=== PATIENT | male | born 1940 | race Native Hawaiian/Other Pacific Islander ===

== ENCOUNTER 2016-10-05 15:49 | Observation (INO) | payer MEDICARE ==
[2016-10-05 15:55] VITALS: BMI 30.7
[2016-10-05] MEDS ORDERED: Sodium Chloride 0.9% 1,000 ML IV ONE (16:14)
--- NOTE | 2016-10-05 16:20 | ED PDOC ---
Arrival/HPI - General Chief Complaint: Dizziness/Lightheaded Time Seen by Provider: 10/05/16 16:12 Historian: Patient - History of Present Illness Narrative History of Present Illness (Text): 10/05/16 16:15 75yo male with PMhx of hypertension, hypercholestrol, CAD, Diabetes referred to ED by Dr. Mattson for 2days history of dizziness. Patient notes that he have been dizzy for the past two days. States is usually when he stands up. Describes the dizziness as "lightheadedness". States he noticed low BP whenever he stands and gets this episodes. Notes that he did not take his antihypertensive for the past 2days, since he noticed the low BP. He denies chest pain, SOB, headache, visual changes, focal neurological weakness, aphasia, nausea, vomiting, abdominal pain, any other complaint. Past Medical History - Provider Review Nursing Documentation Reviewed: Yes - Cardiac Hx Cardiac Arrhythmia: Yes (afib) Hx Pacemaker: No - Pulmonary Hx Respiratory Disorders: No - Neurological Hx Paralysis: No - HEENT Hx HEENT Disorder: No - Renal Other/Comment: disorder kidney and ureter - Hematological/Oncological Hx Blood Transfusions: No Hx Blood Transfusion Reaction: No - Musculoskeletal/Rheumatological Hx Musculoskeletal Disorders: Yes (GOUT) - Gastrointestinal Hx Constipation: Yes - Genitourinary/Gynecological Hx Prostate Problems: Yes (ENLARGED PROSTATE) - Psychiatric Hx Emotional Abuse: No Hx Physical Abuse: No Hx Substance Use: No - Anesthesia Hx Anesthesia Reactions: No Hx Malignant Hyperthermia: No - Suicidal Assessment Feels Threatened In Home Enviroment: No Family/Social History - Physician Review Nursing Documentation Reviewed: Yes Family/Social History: Unknown Family HX Smoking Status: Former Smoker Hx Alcohol Use: No Hx Substance Use: No Allergies/Home Meds Allergies/Adverse Reactions: Allergies No Known Allergies Allergy (Verified 10/05/16 15:55) Home Medications: Home Meds Medication Instructions Recorded Confirmed Aspirin [Aspir 81] 81 mg PO DAILY 11/09/11 10/05/16 Allopurinol [Zyloprim] 100 mg PO DAILY 06/23/15 10/05/16 Clopidogrel [Plavix] 75 mg PO DAILY 06/23/15 10/05/16 HCTZ/Losartan Potassium [Hyzaar 1 tab PO DAILY 06/23/15 10/05/16 12.5 mg-50 mg] Tamsulosin [Flomax] 0.4 mg PO DAILY 06/23/15 10/05/16 Atorvastatin [Lipitor] 10 mg PO DAILY 10/05/16 10/05/16 Cholecalciferol (Vitamin D3) 1 tab PO DAILY 10/05/16 10/05/16 [Vitamin D3] Metformin HCl [Glucophage] 1,000 mg PO BID 10/05/16 10/05/16 Sotalol HCl [Sotalol] 80 mg PO BID 10/05/16 10/05/16 Review of Systems - Physician Review All systems were reviewed & negative as marked: Yes - Review of Systems Constitutional: Normal Eyes: Normal ENT: Normal Respiratory: Normal Cardiovascular: Normal Gastrointestinal: Normal Genitourinary Male: Normal Musculoskeletal: Normal Skin: Normal Neurological: Dizziness. absent: Headache, Focal Weakness, Speech Changes, Facial Droop Endocrine: Normal Hemo/Lymphatic: Normal Psychiatric: Normal Physical Exam Vital Signs Reviewed: Yes Vital Signs Temp Pulse Resp BP Pulse Ox 10/05/16 21:26 62 16 144/85 10/05/16 17:50 79 16 137/83 100 10/05/16 15:56 98.4 F 71 16 128/76 99 Temperature: Afebrile Blood Pressure: Normal Pulse: Regular Respiratory Rate: Normal Appearance: Positive for: Well-Appearing, Non-Toxic, Comfortable Pain Distress: None Mental Status: Positive for: Alert and Oriented X 3 - Systems Exam Head: Present: Atraumatic, Normocephalic Pupils: Present: PERRL Extroacular Muscles: Present: EOMI Conjunctiva: Present: Normal Mouth: Present: Moist Mucous Membranes Neck: Present: Normal Range of Motion Respiratory/Chest: Present: Clear to Auscultation, Good Air Exchange. No: Respiratory Distress, Accessory Muscle Use Cardiovascular: Present: Regular Rate and Rhythm, Normal S1, S2. No: Murmurs Abdomen: Present: Normal Bowel Sounds. No: Tenderness, Distention, Peritoneal Signs Back: Present: Normal Inspection Upper Extremity: Present: Normal Inspection. No: Cyanosis, Edema Lower Extremity: Present: Normal Inspection. No: Edema Neurological: Present: GCS=15, CN II-XII Intact, Speech Normal, Motor Func Grossly Intact, Normal Sensory Function, Normal Cerebellar Funct, Norm Deep Tendon Reflexes, Gait Normal, Memory Normal, Normal 2Pt Descrimination, Other ( No focal neurological deficit) Skin: Present: Warm, Dry, Normal Color. No: Rashes Psychiatric: Present: Alert, Oriented x 3, Normal Insight, Normal Concentration Medical Decision Making ED Course and Treatment: 10/06/16 02:10 PT with multiple co morbidities presented for stated history. He was hemodynamically stable in ED. Lab was unremarkable. Head CT IMPRESSION: Mild atrophy. Mucosal polyp/cyst within the left sphenoid sinus. Opacification/fluid involving the right greater the left mastoid air cells; correlate clinically for mastoiditis. Incidental finding in head CT as noted above. Pt is asymptomatic. he have no ear pain. Pt will need observation for possible carotid US and head MRI. Case was CECELIA Mattson who referred pt to ED he requested that pt be admitted to the hospitalist. Case was CECELIA Alfaro and he accepted pt. Result and plan was DW both and the and they agreed - Lab Interpretations Lab Results: 10/05/16 16:25 10/05/16 16:25 Lab Results 10/05/16 16:51: ESR 11 10/05/16 16:25: Free T4 0.89, TSH 3rd Generation 1.07 10/05/16 16:25: Sodium 132, Potassium 4.4, Chloride 96 L, Carbon Dioxide 28, Anion Gap 12, BUN 12, Creatinine 0.9, Est GFR ( Amer) > 60, Est GFR (Non- Af Amer) > 60, Random Glucose 137 H, Calcium 9.3, Total Bilirubin 0.6, AST 29, ALT 41, Alkaline Phosphatase 46, Lactate Dehydrogenase 275 L, Total Creatine Kinase 84, Troponin I < 0.01, Total Protein 7.0, Albumin 4.0, Globulin 3.0, Albumin/Globulin Ratio 1.3 10/05/16 16:25: PT 11.1, INR 1.03, APTT 25.6 10/05/16 16:25: WBC 7.0, RBC 3.84, Hgb 12.9 L, Hct 37.6 L, MCV 97.9, MCH 33.6, MCHC 34.3, RDW 13.0, Plt Count 164, MPV 9.8, Gran % 62.2, Lymph % (Auto) 27.5, [place] % (Auto) 8.7 H, Eos % (Auto) 1.0 L, Baso % (Auto) 0.6, Gran # 4.36, Lymph # 1.9, [place] # 0.6, Eos # 0.1, Baso # 0.04 - RAD Interpretation Radiology Orders: 10/05/16 16:13 HEAD W/O CONTRAST [CT] Stat - Medication Orders Current Medication Orders: Acetaminophen (Tylenol 325mg Tab) 650 mg PO Q6H PRN PRN Reason: Fever >100.4 F Allopurinol (Zyloprim) 100 mg PO DAILY [facility] Aspirin (Ecotrin) 81 mg PO DAILY [facility] Atorvastatin Calcium (Lipitor) 10 mg PO DAILY [facility] Clopidogrel Bisulfate (Plavix) 75 mg PO DAILY [facility] Famotidine (Pepcid) 20 mg PO BID [facility] Hydralazine HCl (Apresoline) 10 mg IVP Q6H PRN PRN Reason: high blood pressure Hydrochlorothiazide (Microzide) 12.5 mg PO DAILY [facility] Sodium Chloride (Sodium Chloride 0.9%) 100 mls @ 100 mls/hr IV .Q1H [facility] Last Admin: 10/05/16 21:46 Dose: 100 mls/hr Ibuprofen (Motrin Tab) 600 mg PO Q6H PRN PRN Reason: Pain, Mild (1-3) Losartan Potassium (Cozaar) 50 mg PO DAILY [facility] Non-Formulary Medication (Cholecalciferol (Vitamin D3) [Vitamin D3]) 1 tab PO DAILY [facility] Sotalol HCl (Betapace) 80 mg PO BID [facility] Tamsulosin HCl (Flomax) 0.4 mg PO DAILY [facility] Discontinued Medications Sodium Chloride (Sodium Chloride 0.9%) 1,000 mls @ 250 mls/hr IV .Q4H ONE Stop: 10/05/16 20:13 Last Admin: 10/05/16 16:28 Dose: 250 mls/hr Disposition/Present on Arrival - Present on Arrival Any Indicators Present on Arrival: No History of DVT/PE: No History of Uncontrolled Diabetes: No Urinary Catheter: No History of Decub. Ulcer: No History Surgical Site Infection Following: None - Disposition Have Diagnosis and Disposition been Completed?: Yes Diagnosis: Near syncope Disposition: HOSPITALIZED Disposition Time: 19:15 Condition: FAIR
[2016-10-05 16:29] LABS: ADD MANUAL DIFF? NO
[2016-10-05 16:32] LABS: BASO # 0.04 K/mm3 (0.0-2.0); BASO % 0.6 % (0.0-3.0); EOS # 0.1 (0.0-0.7); GRAN # 4.36 (1.4-6.5); GRAN % 62.2 % (50.0-68.0); HEMATOCRIT 37.6 % (42.0-52.0); LYMPH # 1.9 (1.2-3.4); LYMPH % 27.5 % (22.0-35.0); MEAN CELL VOLUME 97.9 fL (80.0-105.0); MEAN CORPUSCULAR HEMOGLOBIN 33.6 pg (25.0-35.0); MEAN CORPUSCULAR HGB CONC 34.3 g/dl (31.0-37.0); MEAN PLATELET VOLUME 9.8 fl (7.0-11.0); MONO # 0.6 (0.1-0.6); MONO % 8.7 % (1.0-6.0); PLATELET COUNT 164 10^3/uL (120.0-450.0)
[2016-10-05 16:41] LABS: ALB/GLOB RATIO 1.3 (1.1-1.8); ALKALINE PHOSPHATASE 46 U/L (38-133); ALT/SGPT 41 U/L (7-56); AST/SGOT 29 U/L (15-59); BILIRUBIN,TOTAL 0.6 mg/dL (0.2-1.3); BLOOD UREA NITROGEN 12 mg/dL (7-21); CALCIUM 9.3 mg/dL (8.4-10.5); CARBON DIOXIDE 28 mmol/L (21-33); CHLORIDE 96 mmol/L (98-107); GFR AFRICAN-AMERICAN > 60; GLUCOSE,RANDOM 137 mg/dL (70-110); POTASSIUM 4.4 mmol/L (3.6-5.0); SODIUM 132 mmol/L (132-148)
[2016-10-05 16:44] LABS: INR 1.03 (0.93-1.08); PARTIAL THROMBOPLASTIN TIME 25.6 Seconds (23.7-30.8)
[2016-10-05 16:56] LABS: TROPONIN I < 0.01 ng/mL
--- NOTE | 2016-10-05 18:27 | CT ---
PROCEDURE: CT HEAD WITHOUT CONTRAST. HISTORY: dizziness COMPARISON: None available. TECHNIQUE: Axial computed tomography images were obtained through the head/brain without intravenous contrast. Radiation dose: Total exam DLP = 918.55 mGy-cm. This CT exam was performed using one or more of the following dose reduction techniques: Automated exposure control, adjustment of the mA and/or kV according to patient size, and/or use of iterative reconstruction technique. FINDINGS: HEMORRHAGE: No intracranial hemorrhage. BRAIN: Diffuse atrophy with prominence of the ventricles and sulci noted. No mass effect or edema. Dense intracranial atherosclerosis. Bilateral basal ganglia calcifications. The valle-white matter differentiation appears intact. Please note that MRI with diffusion imaging is more sensitive in the detection of acute ischemic event. VENTRICLES: No hydrocephalus. CALVARIUM: Unremarkable. PARANASAL SINUSES: 16 mm mucosal polyp or cyst within the left sphenoid sinus. MASTOID AIR CELLS: Opacification/fluid involving the right greater than left mastoid air cells. OTHER FINDINGS: None. IMPRESSION: Mild atrophy. Mucosal polyp/cyst within the left sphenoid sinus. Opacification/fluid involving the right greater the left mastoid air cells; correlate clinically for mastoiditis.
--- NOTE | 2016-10-05 20:13 | CP.PCM.HP ---
<DannyDick - Last Filed: 10/05/16 20:08> History of Present Illness - History of Present Illness History of Present Illness: This patient is a 75yo M w/ a PMHx of CAD w 8 stents, HTN, HLD, DM, BPH, gout who is presenting to the hospital for low blood pressure readings and feelings of dizziness. He states that he has not taken his blood pressure meds in 2 days because his BP has been consistently low, worse when he goes from laying down to standing. He denies fevers/chills, RIOS, CP, SOB, abdominal pain, N/V/D, dysuria/freq/urg, or lower extremity pain/swelling. Patient states he just gets light headed when she stands up, no room spinning or double vision. PMhx: CAD, HTN, HLD, DM, BPH, gout Surgeries hernia surgery Allergies: NKDA Meds: Sotalol, Aspirin 81, Allopurinol, Vit D3, Clopidogrel, Hctz/losartan, Metformin, Tamsulosin Social: Lives at home with , retired, past-smoker stopped 30 years ago, social drinker 1-2 glasses on weekends, no illict drugs FamHx: brother with open heart surgery Present on Admission - Present on Admission Any Indicators Present on Admission: No History of DVT/PE: No History of Uncontrolled Diabetes: No Urinary Catheter: No Decubitus Ulcer Present: No Past Patient History - Past Social History Smoking Status: Former Smoker - CARDIAC Hx Cardia Arrhythmia: Yes (afib) Hx Pacemaker: No - PULMONARY Hx Respiratory Disorders: No - NEUROLOGICAL Hx Paralysis: No - HEENT Hx HEENT Problems: No - RENAL Other/Comment: disorder kidney and ureter - HEMATOLOGICAL/ONCOLOGICAL Hx Blood Transfusions: No Hx Blood Transfusion Reaction: No - MUSCULOSKELETAL/RHEUMATOLOGICAL Hx Musculoskeletal Disorders: Yes (GOUT) - GASTROINTESTINAL Hx Constipation: Yes - GENITOURINARY/GYNECOLOGICAL Hx Prostate Problems: Yes (ENLARGED PROSTATE) - PSYCHIATRIC Hx Emotional Abuse: No Hx Physical Abuse: No Hx Substance Use: No - SURGICAL HISTORY Hx Surgeries: Yes (PTCA WITH STENTS X6 TOTAL) - ANESTHESIA Hx Anesthesia Reactions: No Hx Malignant Hyperthermia: No Meds Allergies/Adverse Reactions: Allergies Allergy/AdvReac Type Severity Reaction Status Date / Time No Known Allergies Allergy Verified 10/05/16 15:55 Physical Exam - Constitutional Appears: Well, Non-toxic - Head Exam Head Exam: ATRAUMATIC, NORMAL INSPECTION - Eye Exam Eye Exam: EOMI, Normal appearance - ENT Exam ENT Exam: Mucous Membranes Moist - Neck Exam Neck exam: Positive for: Full Rom. Negative for: Lymphadenopathy - Respiratory Exam Respiratory Exam: Clear to Auscultation Bilateral, NORMAL BREATHING PATTERN. absent: Rales, Rhonchi, Wheezes - Cardiovascular Exam Cardiovascular Exam: REGULAR RHYTHM - GI/Abdominal Exam GI & Abdominal Exam: Normal Bowel Sounds, Soft. absent: Tenderness - Extremities Exam Extremities exam: Positive for: calf tenderness, normal inspection. Negative for: full ROM - Back Exam Back exam: NORMAL INSPECTION. absent: CVA tenderness (L), CVA tenderness (R) - Neurological Exam Neurological exam: Alert, CN II-XII Intact, Oriented x3 - Psychiatric Exam Psychiatric exam: Normal Affect - Skin Skin Exam: Warm Results - Vital Signs Recent Vital Signs: Last Vital Signs Temp 98.4 F 10/05/16 15:56 Pulse 79 10/05/16 17:50 Resp 16 10/05/16 17:50 BP 137/83 10/05/16 17:50 Pulse Ox 100 10/05/16 17:50 - Labs Result Diagrams: 10/05/16 16:25 10/05/16 16:25 Labs: Laboratory Results - last 24 hr 10/05/16 10/05/16 10/05/16 16:25 16:25 16:25 WBC 7.0 RBC 3.84 Hgb 12.9 L Hct 37.6 L MCV 97.9 MCH 33.6 MCHC 34.3 RDW 13.0 Plt Count 164 MPV 9.8 Gran % 62.2 Lymph % (Auto) 27.5 [place] % (Auto) 8.7 H Eos % (Auto) 1.0 L Baso % (Auto) 0.6 Gran # 4.36 Lymph # 1.9 [place] # 0.6 Eos # 0.1 Baso # 0.04 PT 11.1 INR 1.03 APTT 25.6 Sodium 132 Potassium 4.4 Chloride 96 L Carbon Dioxide 28 Anion Gap 12 BUN 12 Creatinine 0.9 Est GFR ( Amer) > 60 Est GFR (Non-Af Amer) > 60 Random Glucose 137 H Calcium 9.3 Total Bilirubin 0.6 AST 29 ALT 41 Alkaline Phosphatase 46 Lactate Dehydrogenase 275 L Total Creatine Kinase 84 Troponin I < 0.01 Total Protein 7.0 Albumin 4.0 Globulin 3.0 Albumin/Globulin Ratio 1.3 Assessment & Plan - Assessment and Plan (Free Text) Assessment: 75yo M admitted for near syncope Near Syncope -echo and carotid dopplers ordered -hold all BP meds for now -fluid rescucitation with 100ml/hr NS -f/u tsh and free T4 -trend troponin, initial negative -telemetry -urine negative -orthostatic blood pressure check; patient orthostatic at home; most likely dehydration Chronic CHF not in acute exacerbation (systolic and diastolic dysfunction) -EF decreased on myocardial nuclear stress test, however 54% on regular stress with wall motion abnormalities HTN -hold BP meds for now -PRN hydralazine if becomes Hypertensive HLD -c/w home meds DM -RISS low BPH -hold tamsulosin for now because can lower BP Gout -not in acute exacerbation -continue with home meds; allopurinol Proph -pepcid -SCD -Heart Healthy Diet Case discussed and seen with Dr. Dominic Delgado PGY1 Night Float Decision To Admit - Pt Status Changed To: Hospital Disposition Of: Observation - . Bed Request Type: Remote Telemetry Admitting Physician: Travis Alfaro <Travis Alfaro - Last Filed: 10/06/16 02:35> Results - Vital Signs Recent Vital Signs: Last Vital Signs Temp 97.8 F 10/05/16 22:25 Pulse 61 10/05/16 22:25 Resp 18 10/05/16 22:25 BP 144/74 10/05/16 22:25 Pulse Ox 100 10/05/16 17:50 - Labs Result Diagrams: 10/05/16 16:25 10/05/16 16:25 Labs: Laboratory Results - last 24 hr 10/05/16 22:19 Troponin I < 0.01 Attending/Attestation - Attestation I have personally seen and examined this patient.: Yes I have fully participated in the care of the patient.: Yes I have reviewed all pertinent clinical information: Yes
[2016-10-05 20:47] LABS: FREE T4 0.89 ng/dL (0.78-2.19)
[2016-10-05 21:02] LABS: THYROID STIMULATING HORMONE 1.07 mIU/mL (0.46-4.68)
[2016-10-05] MEDS: Sodium Chloride 0.9% 100 ML IV SCH (21:46)
[2016-10-06 00:24] VITALS: RESP 18
[2016-10-06] MEDS: Sodium Chloride 0.9% 100 ML IV SCH (06:57)
[2016-10-06 07:34] LABS: ADD MANUAL DIFF? NO
[2016-10-06 07:42] LABS: BASO # 0.04 K/mm3 (0.0-2.0); BASO % 0.6 % (0.0-3.0); EOS # 0.1 (0.0-0.7); EOS % 1.4 % (1.5-5.0); GRAN # 4.19 (1.4-6.5); GRAN % 65.7 % (50.0-68.0); HEMATOCRIT 36.4 % (42.0-52.0); LYMPH # 1.5 (1.2-3.4); LYMPH % 23.7 % (22.0-35.0); MEAN CELL VOLUME 97.8 fL (80.0-105.0); MEAN CORPUSCULAR HEMOGLOBIN 33.1 pg (25.0-35.0); MEAN CORPUSCULAR HGB CONC 33.8 g/dl (31.0-37.0); MEAN PLATELET VOLUME 9.9 fl (7.0-11.0); MONO # 0.6 (0.1-0.6); MONO % 8.6 % (1.0-6.0); PLATELET COUNT 155 10^3/uL (120.0-450.0); WHITE BLOOD COUNT 6.4 10^3/ul (4.5-11.0)
[2016-10-06 08:57] LABS: ALB/GLOB RATIO 1.4 (1.1-1.8); ALKALINE PHOSPHATASE 51 U/L (38-133); ALT/SGPT 43 U/L (7-56); AST/SGOT 28 U/L (15-59); BILIRUBIN,TOTAL 0.6 mg/dL (0.2-1.3); BLOOD UREA NITROGEN 10 mg/dL (7-21); CALCIUM 9.3 mg/dL (8.4-10.5); CARBON DIOXIDE 26 mmol/L (21-33); CHLORIDE 101 mmol/L (95-110); GFR AFRICAN-AMERICAN > 60; GLUCOSE,RANDOM 136 mg/dL (70-110); POTASSIUM 4.4 mmol/L (3.6-5.0); SODIUM 137 mmol/L (132-148); TOTAL PROTEIN 6.3 g/dL (5.8-8.3)
[2016-10-06 09:33] VITALS: BP 155/91; TEMP 98.2; O2SAT 97
[2016-10-06] MEDS ORDERED: Non Formulary Medication (Cholecalciferol (Vitamin D3) [Vitamin D3] 1 TAB) PO SCH (10:00)
[2016-10-06] MEDS ORDERED: Non Formulary Medication (Hctz/Losartan Potassium [Hyzaar 12.5 Mg-50 Mg] 1 TAB) PO SCH (10:00)
--- NOTE | 2016-10-06 10:17 | CARD ---
APPROVED REPORT EKG Measurement Heart [id number] <Conclusion> Normal sinus rhythm Inferior infarct, old NSSTW changes No change
--- NOTE | 2016-10-06 13:40 | CP.PCM.PN ---
<Jean Funk - Last Filed: 10/06/16 13:36> Subjective - Date & Time of Evaluation Date of Evaluation: 10/06/16 Time of Evaluation: 13:36 - Subjective Subjective: Patient seen at bedside. He denies dizziness, chest pain, shortness of breath at this time. He and his states that he has been compliant with all home medications. states that the patient experienced symptoms when standing from a sitting position. States SBP at time of event was 70's. No prior hx seizure, CVA, arrhythmia. Objective - Vital Signs/Intake and Output Vital Signs (last 24 hours): Temp Pulse Resp BP Pulse Ox 98.2 F 61 18 155/91 H 97 10/06/16 06:00 10/06/16 10:12 10/06/16 06:00 10/06/16 10:12 10/06/16 06:00 Intake and Output: 10/06/16 10/06/16 06:59 18:59 Intake Total 120 Output Total 400 Balance -280 - Medications Medications: Current Medications Acetaminophen (Tylenol 325mg Tab) 650 mg PO Q6H PRN PRN Reason: Fever >100.4 F Allopurinol (Zyloprim) 100 mg PO DAILY [facility] Last Admin: 10/06/16 10:11 Dose: 100 mg Aspirin (Ecotrin) 81 mg PO DAILY [facility] Last Admin: 10/06/16 10:11 Dose: 81 mg Atorvastatin Calcium (Lipitor) 10 mg PO DAILY [facility] Last Admin: 10/06/16 10:11 Dose: 10 mg Clopidogrel Bisulfate (Plavix) 75 mg PO DAILY [facility] Last Admin: 10/06/16 10:11 Dose: 75 mg Famotidine (Pepcid) 20 mg PO BID [facility] Last Admin: 10/06/16 10:12 Dose: 20 mg Hydralazine HCl (Apresoline) 10 mg IVP Q6H PRN PRN Reason: high blood pressure Hydrochlorothiazide (Microzide) 12.5 mg PO DAILY [facility] Last Admin: 10/06/16 10:11 Dose: 12.5 mg Sodium Chloride (Sodium Chloride 0.9%) 100 mls @ 100 mls/hr IV .Q1H [facility] Last Admin: 10/06/16 06:57 Dose: 100 mls/hr Ibuprofen (Motrin Tab) 600 mg PO Q6H PRN PRN Reason: Pain, Mild (1-3) Losartan Potassium (Cozaar) 50 mg PO DAILY [facility] Last Admin: 10/06/16 10:12 Dose: 50 mg Non-Formulary Medication (Cholecalciferol (Vitamin D3) [Vitamin D3]) 1 tab PO DAILY [facility] Last Admin: 10/06/16 10:12 Dose: Not Given Sotalol HCl (Betapace) 80 mg PO BID [facility] Last Admin: 10/06/16 10:12 Dose: Not Given Tamsulosin HCl (Flomax) 0.4 mg PO DAILY [facility] Last Admin: 10/06/16 10:12 Dose: Not Given - Labs Labs: 10/06/16 07:32 10/06/16 07:30 PT 11.1 Seconds (9.9-11.8) 10/05/16 16:25 INR 1.03 (0.93-1.08) 10/05/16 16:25 APTT 25.6 Seconds (23.7-30.8) 10/05/16 16:25 - Head Exam Head Exam: ATRAUMATIC, NORMOCEPHALIC - Eye Exam Eye Exam: EOMI, PERRL - ENT Exam ENT Exam: Mucous Membranes Moist - Neck Exam Neck Exam: Full ROM, Normal Inspection - Respiratory Exam Respiratory Exam: Clear to Ausculation Bilateral. absent: Rales, Rhonchi, Wheezes - Cardiovascular Exam Cardiovascular Exam: REGULAR RHYTHM, +S1, +S2 - GI/Abdominal Exam GI & Abdominal Exam: Soft, Normal Bowel Sounds. absent: Tenderness - Extremities Exam Extremities Exam: absent: Calf Tenderness, Pedal Edema - Neurological Exam Neurological Exam: Alert, Awake, Oriented x3 - Psychiatric Exam Psychiatric exam: Normal Affect, Normal Mood - Skin Skin Exam: Normal Color, Warm Assessment and Plan - Assessment and Plan (Free Text) Assessment: 75yo M admitted for near syncope likely 2/2 orthostatic hypotension. Near Syncope -echo and carotid dopplers results pending -hold all BP meds for now -continue fluid rescucitation with 100ml/hr NS -f/u tsh and free T4 -trop negative -telemetry -urine negative Chronic CHF not in acute exacerbation (systolic and diastolic dysfunction) -EF decreased on myocardial nuclear stress test, however 54% on regular stress with wall motion abnormalities HTN -hold BP meds for now -PRN hydralazine if becomes Hypertensive HLD -c/w home meds DM -RISS low BPH -hold tamsulosin for now because can lower BP Gout -not in acute exacerbation -continue with home meds; allopurinol Proph -pepcid -SCD -Heart Healthy Diet <Viv Escobar B - Last Filed: 10/06/16 17:06> Objective - Vital Signs/Intake and Output Vital Signs (last 24 hours): Temp Pulse Resp BP Pulse Ox 98.2 F 82 18 155/91 H 97 10/06/16 06:00 10/06/16 14:00 10/06/16 06:00 10/06/16 10:12 10/06/16 06:00 Intake and Output: 10/06/16 10/06/16 06:59 18:59 Intake Total 120 Output Total 400 Balance -280 - Medications Medications: Current Medications Acetaminophen (Tylenol 325mg Tab) 650 mg PO Q6H PRN PRN Reason: Fever >100.4 F Allopurinol (Zyloprim) 100 mg PO DAILY [facility] Last Admin: 10/06/16 10:11 Dose: 100 mg Aspirin (Ecotrin) 81 mg PO DAILY [facility] Last Admin: 10/06/16 10:11 Dose: 81 mg Atorvastatin Calcium (Lipitor) 10 mg PO DAILY [facility] Last Admin: 10/06/16 10:11 Dose: 10 mg Clopidogrel Bisulfate (Plavix) 75 mg PO DAILY [facility] Last Admin: 10/06/16 10:11 Dose: 75 mg Famotidine (Pepcid) 20 mg PO BID [facility] Last Admin: 10/06/16 10:12 Dose: 20 mg Hydralazine HCl (Apresoline) 10 mg IVP Q6H PRN PRN Reason: high blood pressure Hydrochlorothiazide (Microzide) 12.5 mg PO DAILY [facility] Last Admin: 10/06/16 10:11 Dose: 12.5 mg Sodium Chloride (Sodium Chloride 0.9%) 100 mls @ 100 mls/hr IV .Q1H [facility] Last Admin: 10/06/16 06:57 Dose: 100 mls/hr Ibuprofen (Motrin Tab) 600 mg PO Q6H PRN PRN Reason: Pain, Mild (1-3) Losartan Potassium (Cozaar) 50 mg PO DAILY [facility] Last Admin: 10/06/16 10:12 Dose: 50 mg Non-Formulary Medication (Cholecalciferol (Vitamin D3) [Vitamin D3]) 1 tab PO DAILY [facility] Last Admin: 10/06/16 10:12 Dose: Not Given Sotalol HCl (Betapace) 80 mg PO BID [facility] Last Admin: 10/06/16 10:12 Dose: Not Given Tamsulosin HCl (Flomax) 0.4 mg PO DAILY [facility] Last Admin: 10/06/16 10:12 Dose: Not Given - Labs Labs: 10/06/16 07:32 10/06/16 07:30 PT 11.1 Seconds (9.9-11.8) 10/05/16 16:25 INR 1.03 (0.93-1.08) 10/05/16 16:25 APTT 25.6 Seconds (23.7-30.8) 10/05/16 16:25 Attending/Attestation - Attestation I have personally seen and examined this patient.: Yes I have fully participated in the care of the patient.: Yes I have reviewed all pertinent clinical information, including history, physical exam and plan: Yes Notes (Text): I have seen and examined the patient at bedside. This is 75 year old male with history of CAD s/p 8 stents, HTN, dyslipidemia, DM-2, BPH, gout, former smoker, paroxysmal atrial fibrillation (not on anticoagulation) who was admitted last night for near syncope most likely due to orthostatic hypotension however other causes cannot be ruled out. His BP was noted to be low therefore all BP meds were held. He remains on IVF. He denies any complaints at this time. Echo and carotid doppler is done however result is still pending. Awaiting cardiology consult. Upon discharge patient will follow up with Dr Mattson. Dr Viv Escobar
[2016-10-06 14:23] VITALS: PULSE 82
--- NOTE | 2016-10-06 15:43 | US ---
PROCEDURE: Bilateral carotid artery duplex ultrasound HISTORY: Carotid stenosis syncope PHYSICIAN(S): Guille Bush MD. TECHNIQUE: Duplex sonography and color-flow Doppler were used to evaluate the carotid bifurcations and limited segments of the vertebral arteries bilaterally. FINDINGS: There is mild diffuse heterogeneous plaque noted at the carotid bifurcations bilaterally. The peak systolic velocity in the proximal right internal carotid artery is 81 cm/sec. This corresponds to a 20 to 39% proximal right ICA stenosis. Normal systolic velocities are noted in the proximal right external carotid artery. There is antegrade flow in the small right vertebral artery. The peak systolic velocity in the proximal left internal carotid artery is 80 cm/sec. This corresponds to a 20 to 39% proximal left ICA stenosis. Normal systolic velocities are noted in the proximal left external carotid artery. There is antegrade flow in the dominant left vertebral artery. IMPRESSION: 1. Bilateral 20-39% proximal ICA stenoses. 2. Antegrade flow in both vertebral arteries.
--- NOTE | 2016-10-07 09:51 | CARD ---
APPROVED REPORT EXAM: Two-dimensional and M-mode echocardiogram with Doppler and color Doppler. Other Information Quality : FairRhythm : INDICATION Syncope 2D DIMENSIONS IVSd1.1 (0.7-1.1cm)LVDd5.2 (3.9-5.9cm) PWd1.1 (0.7-1.1cm)LVDs3.8 (2.5-4.0cm) FS (%) 23.8 %LVEF (%)50.0 (>50%) M-Mode DIMENSIONS Left Atrium (MM)4.30 (2.5-4.0cm)Aortic Root4.10 (2.2-3.7cm) Aortic Cusp Exc.2.40 (1.5-2.0cm) Aortic Valve AoV Peak Gwkfnwzt873.0cm/s Mitral Valve MV E Njokgzyn17.5cm/sMV A Mpidwqin45.8cm/sE/A ratio1.3 TDI Lateral E' Peak V8.76cm/sMedial E' Peak V5.94cm/sE/Lateral E'8.4 E/Medial E'12.4 Tricuspid Valve TR Peak Kthrfqcd687ef/sRAP [id number] Peak Gr.30mmHg [id number] LEFT VENTRICLE The left ventricle is normal size. There is normal left ventricular wall thickness. The left ventricular function is normal. The left ventricular ejection fraction is within the normal range. There is normal LV segmental wall motion. RIGHT VENTRICLE The right ventricle is normal size. ATRIA The left atrium is mildly dilated. The right atrium size is normal. The interatrial septum is intact with no evidence for an atrial septal defect. AORTIC VALVE The aortic valve is normal in structure. There is trace aortic regurgitation. MITRAL VALVE The mitral valve is normal in structure. Mitral regurgitation is trace. TRICUSPID VALVE The tricuspid valve is normal in structure. PULMONIC VALVE The pulmonic valve is not well visualized. There is mild pulmonic valvular regurgitation. GREAT VESSELS The aortic root is normal in size. PERICARDIAL EFFUSION There is no pericardial effusion. <Conclusion> The left ventricle is normal size. There is normal left ventricular wall thickness. The left ventricular function is normal. The left ventricular ejection fraction is within the normal range.
== END 2016-10-06 18:14 | disposition home or self-care (01) ==
LOC: ED 15:49 → ERH 19:14 → 3RSO 21:17
PROVIDERS: ADMIT Hospitalist; ATTEND Hospitalist
DX: I95.1 Orthostatic hypotension (principal); R55 Syncope and collapse; I11.0 Hypertensive heart disease with heart failure; I50.42 Chronic combined systolic (congestive) and diastolic (congestive) heart failure; N40.0 Benign prostatic hyperplasia without lower urinary tract symptoms; M10.9 Gout, unspecified; I48.0 Paroxysmal atrial fibrillation; I25.10 Atherosclerotic heart disease of native coronary artery without angina pectoris; E78.5 Hyperlipidemia, unspecified; E11.9 Type 2 diabetes mellitus without complications; Z79.84 Long term (current) use of oral hypoglycemic drugs; Z79.82 Long term (current) use of aspirin; Z87.891 Personal history of nicotine dependence
CPT/HCPCS: 36415; 70450; 80053; 82550; 82948; 83615; 84439; 84443; 84484; 85025; 85610; 85651; 85730; 87040; 93005; 93306; 93880; 99285; G0378; J7040

== ENCOUNTER 2016-10-09 14:42 | Observation (INO) | payer MEDICARE ==
[2016-10-09 14:42] VITALS: BMI 30.7
--- NOTE | 2016-10-09 15:16 | ED PDOC ---
Arrival/HPI - General Chief Complaint: Syncope Time Seen by Provider: 10/09/16 14:47 Historian: Patient, Family - History of Present Illness Narrative History of Present Illness (Text): 10/09/16 15:21 A 75 year old male brought in by EMS to the emergency department after episode of syncope. Patient's family reports patient was eating when patient's hands were shaking and he had an episode of vomiting. Patient's family reports he passed out for about 1 to 2 minutes and came back to normal after episode. Patient reports a history of low blood pressure when standing up. Patient denies any other complaints at this time. Symptom Onset: Sudden Activities at Onset: Rest Context: Home Associated Symptoms (Text): none Past Medical History - Provider Review Nursing Documentation Reviewed: Yes - Cardiac Hx Cardiac Arrhythmia: Yes (afib) Hx Pacemaker: No - Pulmonary Hx Respiratory Disorders: No - Neurological Hx Paralysis: No - HEENT Hx HEENT Disorder: No - Renal Other/Comment: disorder kidney and ureter - Endocrine/Metabolic Hx Endocrine Disorders: Yes Hx Diabetes Mellitus Type 2: Yes - Hematological/Oncological Hx Blood Transfusions: No Hx Blood Transfusion Reaction: No - Musculoskeletal/Rheumatological Hx Musculoskeletal Disorders: Yes (GOUT) - Gastrointestinal Hx Constipation: Yes - Genitourinary/Gynecological Hx Prostate Problems: Yes (ENLARGED PROSTATE) - Psychiatric Hx Emotional Abuse: No Hx Physical Abuse: No Hx Substance Use: No - Surgical History Hx Cardiac Catheterization: Yes Hx Coronary Stent: Yes - Anesthesia Hx Anesthesia Reactions: No Hx Malignant Hyperthermia: No - Suicidal Assessment Feels Threatened In Home Enviroment: No Family/Social History - Physician Review Nursing Documentation Reviewed: Yes Family/Social History: No Known Family HX Smoking Status: Former Smoker Hx Alcohol Use: No Hx Substance Use: No Allergies/Home Meds Allergies/Adverse Reactions: Allergies No Known Allergies Allergy (Verified 10/09/16 15:05) Home Medications: Home Meds Medication Instructions Recorded Confirmed Aspirin [Aspir 81] 81 mg PO DAILY 11/09/11 10/09/16 Allopurinol [Zyloprim] 100 mg PO DAILY 06/23/15 10/09/16 Clopidogrel [Plavix] 75 mg PO DAILY 06/23/15 10/09/16 Atorvastatin [Lipitor] 10 mg PO DAILY 10/05/16 10/09/16 Cholecalciferol (Vitamin D3) 1 tab PO DAILY 10/05/16 10/09/16 [Vitamin D3] Metformin HCl [Glucophage] 1,000 mg PO BID 10/05/16 10/09/16 Sotalol HCl [Sotalol] 40 mg PO BID 10/05/16 10/09/16 Physical Exam - Physical Exam Narrative Physical Exam (Text): 10/09/16 15:16- Review of Systems Constitutional: Normal. absent: Fatigue, Weight Change, Fevers Eyes: Normal ENT: Normal Respiratory: Normal absent: SOB, Cough, Sputum Cardiovascular: Present: syncope absent: Chest pain, Palpitations Gastrointestinal: Present: vomiting absent: Abdominal pain, Diarrhea, Nausea Genitourinary: Normal. absent: Dysuria, Frequency, Hematuria Musculoskeletal: Normal. absent: Arthralgias, Back Pain, Neck Pain Skin: Normal Neurological: Normal absent: Focal Weakness Endocrine: Normal Hemo/Lymphatic: Normal Psychiatric: Normal - Physical exam Patient appears age appropriate, speaking full sentences without difficulty - Systems Exam Head: Present: Atraumatic, Normocephalic Pupils: Present: PERRL Extraocular Muscles: Present: EOMI Conjunctiva: Present: Normal Mouth: Present: Moist Mucous Membranes Neck: Present: Normal Range of Motion. No: MIDLINE TENDERNESS, Paraspinal Tenderness Respiratory/Chest: Present: Clear to Auscultation, Good Air Exchange. No: Respiratory Distress, Accessory Muscle Use, Tachypnic Cardiovascular: Present: Regular Rate and Rhythm, Normal S1, S2, Peripheral Pulses Present. No: Murmurs Abdomen: Present: Normal Bowel Sounds, No: Tenderness, Peritoneal Signs, Rebound, Guarding, Distention Back: Present: Normal Inspection. No: Midline Tenderness, Paraspinal Tenderness Upper Extremity: Present: Normal Inspection. No: Cyanosis, Edema Lower Extremity: Present: Normal Inspection. No: Edema Neurological: Present: GCS=15, Speech Normal, cranial nerves II through XII fully intact with no cerebellar abnormality, neuro-sensory fully intact. No focal neurological deficits. Skin: Present: Warm, Dry, Normal Color. No: Rashes Lymphatic: Present: OX3, NI, NC Psychiatric: Present: Alert, Oriented x 3, Normal Insight, Normal Concentration Vital Signs Reviewed: Yes Vital Signs Temp Pulse Resp BP Pulse Ox 10/09/16 16:17 59 L 12 88/54 L 93 L 10/09/16 14:57 98.1 F 62 18 158/75 H 98 Temperature: Afebrile Blood Pressure: Hypertensive Pulse: Regular Respiratory Rate: Normal Appearance: Positive for: Well-Appearing, Non-Toxic, Comfortable Pain Distress: None Mental Status: Positive for: Alert and Oriented X 3 Medical Decision Making ED Course and Treatment: 10/09/16 15:13 Impression: A 75 year old male with syncope and vomiting. No acute findings on physical exam. No focal neurological deficits on examination. Plan: -- labs -- Reassess and disposition Prior Visits: Notes and results from previous visits were reviewed. Patient last reported to the emergency department on 10/05/16 for evaluation of dizziness. Progress Notes: Case discussed with patient PMD, Dr. Mattson, who wants patient to be readmitted for further workup and evaluation. Pt and family aware of and agree with plan 10/09/16 15:44 pt's orthostatics are positive fluids ordered EKG shows sinus chana, 58bpm, no st-segment elevations. interpreted by me. 10/09/16 16:[address] Gleason, accepted pt to his service for syncope - Lab Interpretations Lab Results: 10/09/16 15:30 10/09/16 15:30 Lab Results 10/09/16 15:30: PT 12.4 H, INR 1.15 H, APTT 25.8 10/09/16 15:30: WBC 6.2, RBC 3.89, Hgb 13.2 L, Hct 37.6 L, MCV 96.7, MCH 33.9, MCHC 35.1, RDW 12.7, Plt Count 160, MPV 10.4, Gran % 65.2, Lymph % (Auto) 23.8, Desha % (Auto) 9.0 H, Eos % (Auto) 1.4 L, Baso % (Auto) 0.6, Gran # 4.04, Lymph # 1.5, Desha # 0.6, Eos # 0.1, Baso # 0.04 10/09/16 15:30: Sodium 129 L, Potassium 4.4, Chloride 95 L, Carbon Dioxide 23, Anion Gap 15, BUN 10, Creatinine 0.8, Est GFR ( Amer) > 60, Est GFR (Non- Af Amer) > 60, Random Glucose 139 H, Calcium 8.9, Total Bilirubin 0.7, AST 30, ALT 41, Alkaline Phosphatase 43, Lactate Dehydrogenase 373, Total Creatine Kinase 84, Troponin I Pending, Total Protein 6.4, Albumin 3.5, Globulin 2.9, Albumin/Globulin Ratio 1.2 I have reviewed the lab results: Yes - Medication Orders Current Medication Orders: Discontinued Medications Sodium Chloride (Sodium Chloride 0.9%) 1,000 mls @ 1,000 mls/hr IV .Q1H STA Stop: 10/09/16 16:41 Last Admin: 10/09/16 16:29 Dose: 1,000 mls/hr - Scribe Statement The provider has reviewed the documentation as recorded by the Viv Da Silva Provider Scribe Attestation: All medical record entries made by the Viv were at my direction and personally dictated by me. I have reviewed the chart and agree that the record accurately reflects my personal performance of the history, physical exam, medical decision making, and the department course for this patient. I have also personally directed, reviewed, and agree with the discharge instructions and disposition. Disposition/Present on Arrival - Present on Arrival Any Indicators Present on Arrival: No History of DVT/PE: No History of Uncontrolled Diabetes: No Urinary Catheter: No History of Decub. Ulcer: No History Surgical Site Infection Following: None - Disposition Have Diagnosis and Disposition been Completed?: Yes Diagnosis: Syncope Disposition Time: 16:44 Patient Plan: Observation Condition: GOOD Discharge Instructions (ExitCare): Syncope (ED)
[2016-10-09 15:41] LABS: ADD MANUAL DIFF? NO
[2016-10-09] MEDS ORDERED: Sodium Chloride 0.9% 1,000 ML IV STA ×2 (15:42→16:44)
[2016-10-09 15:55] LABS: BASO # 0.04 K/mm3 (0.0-2.0); BASO % 0.6 % (0.0-3.0); EOS # 0.1 (0.0-0.7); EOS % 1.4 % (1.5-5.0); GRAN # 4.04 (1.4-6.5); GRAN % 65.2 % (50.0-68.0); HEMATOCRIT 37.6 % (42.0-52.0); LYMPH # 1.5 (1.2-3.4); LYMPH % 23.8 % (22.0-35.0); MEAN CELL VOLUME 96.7 fL (80.0-105.0); MEAN CORPUSCULAR HEMOGLOBIN 33.9 pg (25.0-35.0); MEAN CORPUSCULAR HGB CONC 35.1 g/dl (31.0-37.0); MEAN PLATELET VOLUME 10.4 fl (7.0-11.0); MONO # 0.6 (0.1-0.6); PLATELET COUNT 160 10^3/uL (120.0-450.0); RED CELL DISTRIBUTION WIDTH 12.7 % (11.5-14.5); WHITE BLOOD COUNT 6.2 10^3/ul (4.5-11.0)
[2016-10-09 16:10] LABS: INR 1.15 (0.93-1.08); PARTIAL THROMBOPLASTIN TIME 25.8 Seconds (23.7-30.8)
[2016-10-09 16:34] LABS: ALB/GLOB RATIO 1.2 (1.1-1.8); ALKALINE PHOSPHATASE 43 U/L (38-133); ALT/SGPT 41 U/L (7-56); AST/SGOT 30 U/L (15-59); BILIRUBIN,TOTAL 0.7 mg/dL (0.2-1.3); BLOOD UREA NITROGEN 10 mg/dL (7-21); CALCIUM 8.9 mg/dL (8.4-10.5); CARBON DIOXIDE 23 mmol/L (21-33); CHLORIDE 95 mmol/L (98-107); GFR AFRICAN-AMERICAN > 60; GLUCOSE,RANDOM 139 mg/dL (70-110); POTASSIUM 4.4 mmol/L (3.6-5.0); SODIUM 129 mmol/L (132-148); TOTAL PROTEIN 6.4 g/dL (5.8-8.3)
[2016-10-09 16:46] LABS: TROPONIN I < 0.01 ng/mL
[2016-10-09] MEDS: Sodium Chloride 0.9% 1,000 ML IV SCH (17:52)
--- NOTE | 2016-10-09 18:07 | CP.PCM.HP ---
<Gerald Brunner - Last Filed: 10/09/16 18:53> History of Present Illness - History of Present Illness History of Present Illness: Internal Medicine H&P for Dr. Gleason CC: Vomitted then syncopized HPI: This is a 75 yo Dilma M with PMH of CAD x8 stents, HTN, HLD, DM, BPH, gout, and frequent near-syncopal episodes who is representing to [facility] due to syncopal episode after an acute episode of emesis while eating lunch. He was recently admitted to [facility] on 10/05/16 for near syncopal episode with low BP, but left against medical advice 1 day later. History obtained from patient and daughter at bedside. Per patient, he experienced some GI distress earlier in the day, feeling as though he had loose stools, so he took some immodium, otherwise he was not experiencing any symptoms. Immediately prior to emesis and passing out (he has no memory of either), he began to feel warm. Next memory is regaining consciousness 1-2 minutes later. Daughter at bedside reports he slumped over in his chair, no falls or head trauma after syncopizing. Patient denies chest pain, shortness of breath, pain with breathing, further emesis, productive cough, or sensation of something stuck in his esophagus or airway after regaining consciousness. Patient also denies sensation of room spinning, palpitations, or abnormal heart beat before or after syncopal episode. After leaving against medical advice on 10/06/16, patient followed up with his PMD (Dr. Mattson), who ordered the patient to stop his Cozaar and Flomax, and to reduce his Sotalol from 80mg BID to 40mg BID. Patient reports compliance with these instructions, and with all other home meds. Despite this, patient and daughter report persistently low BP, including readings of 60's-80's systolic on home BP machine. Patient admits most near-syncopal episodes occur when transitioning from lying to sitting or sitting to standing, but denies any attempt to stand prior to this episode (daughter confirms). PMH: as above PSH: cardiac cath with stenting, unspecified hernia surgery SHx: Lives at home with , retired, former smoker (stopped 30 years ago), admits social alcohol (1-2 glasses on weekends), denies illicits/IVDA FHx: brother with open heart surgery, other brother with pacemaker PMD: Dr. Mattson Manager Program: Dr. Harper Present on Admission - Present on Admission Any Indicators Present on Admission: No History of DVT/PE: No History of Uncontrolled Diabetes: No Urinary Catheter: No Review of Systems - Constitutional Constitutional: Weakness (post syncopal episode, since resolved). absent: Chills, Fever Additional comments: sensation of diffuse warmth prior to loss of consciousness, but specifically denies fevers - EENT Eyes: absent: Blurred Vision, Change in Vision, Loss of Vision Ears: Dizziness (none at rest or at time of exam, frequently during orthostatic hypotensive episodes when moving to sitting or standing) Nose/Mouth/Throat: absent: Neck Pain - Cardiovascular Cardiovascular: Lightheadedness (none at rest or at time of exam, frequently during orthostatic hypotensive episodes when moving to sitting or standing), Syncope (one time, today, after emesis episode; multiple prior near-syncopal episodes). absent: Chest Pain, Chest Pain at Rest, Chest Pain with Activity, Diaphoresis, Dyspnea, Dyspnea on Exertion, Pain Radiating to Arm/Neck/Jaw, Palpitations, Rapid Heart Rate - Respiratory Respiratory: absent: Cough, Dyspnea, Hemoptysis, Dyspnea on Exertion, Wheezing, Pain on Inspiration - Gastrointestinal Gastrointestinal: Diarrhea (watery loose stools eariler today, took over-the- counter immodium for it with no further episodes), Vomiting (1x episode of emesis per daughter, prior to syncopal episode, non-bilious non-bloody). absent : Abdominal Pain, Constipation, Nausea - Genitourinary Genitourinary: absent: Difficulty Urinating (off of Flomax since last visit, but reports normal urination), Dysuria, Flank Pain, Hematuria - Musculoskeletal Musculoskeletal: Back Pain (mild, baseline per patient). absent: Numbness - Integumentary Integumentary: absent: Pruritus, Rash - Neurological Neurological: Syncope (1x episode, 1-2 minutes, patient has no memory of event or immediately preceding), Weakness. absent: Numbness, Focal Weakness, Headaches, Loss of Vision, Other Visual Disturbances - Psychiatric Psychiatric: absent: Anxiety - Endocrine Endocrine: absent: Fatigue, Palpitations Past Patient History - Past Social History Smoking Status: Former Smoker - CARDIAC Hx Cardia Arrhythmia: Yes (afib) Hx Pacemaker: No - PULMONARY Hx Respiratory Disorders: No - NEUROLOGICAL Hx Paralysis: No - HEENT Hx HEENT Problems: No - RENAL Other/Comment: disorder kidney and ureter - ENDOCRINE/METABOLIC Hx Endocrine Disorders: Yes Hx Diabetes Mellitus Type 2: Yes - HEMATOLOGICAL/ONCOLOGICAL Hx Blood Transfusions: No Hx Blood Transfusion Reaction: No - MUSCULOSKELETAL/RHEUMATOLOGICAL Hx Musculoskeletal Disorders: Yes (GOUT) - GASTROINTESTINAL Hx Constipation: Yes - GENITOURINARY/GYNECOLOGICAL Hx Prostate Problems: Yes (ENLARGED PROSTATE) - PSYCHIATRIC Hx Emotional Abuse: No Hx Physical Abuse: No Hx Substance Use: No - SURGICAL HISTORY Hx Cardiac Catheterization: Yes Hx Coronary Stent: Yes - ANESTHESIA Hx Anesthesia Reactions: No Hx Malignant Hyperthermia: No Meds Allergies/Adverse Reactions: Allergies Allergy/AdvReac Type Severity Reaction Status Date / Time No Known Allergies Allergy Verified 10/09/16 15:05 Physical Exam - Constitutional Appears: Non-toxic, No Acute Distress - Head Exam Head Exam: ATRAUMATIC, NORMAL INSPECTION, NORMOCEPHALIC - Eye Exam Eye Exam: EOMI, Normal appearance, PERRL. absent: Conjunctival injection, Scleral icterus Pupil Exam: NORMAL ACCOMODATION, PERRL. absent: Fixed, Irregular, Unequal - ENT Exam ENT Exam: Mucous Membranes Moist. absent: Mucous Membranes Dry - Neck Exam Neck exam: Negative for: Lymphadenopathy, Tenderness - Respiratory Exam Respiratory Exam: Rhonchi (faint ronchi at R base, intermittent), NORMAL BREATHING PATTERN. absent: Accessory Muscle Use, Chest Wall Tenderness, Decreased Breath Sounds, Prolonged Expiratory Phase, Rales, Wheezes, Respiratory Distress - Cardiovascular Exam Cardiovascular Exam: REGULAR RHYTHM (60's on bedside monitor during exam), RRR, +S1, +S2. absent: Bradycardia, Tachycardia, Clicks, Diastolic murmur, Irregular Rhythm, JVD, +S4, Systolic Murmur - GI/Abdominal Exam GI & Abdominal Exam: Normal Bowel Sounds, Soft. absent: Diminished Bowel Sounds , Distended, Firm, Hyperactive Bowel Sounds, Hypoactive Bowel Sounds, Rigid, Tenderness - Extremities Exam Extremities exam: Positive for: normal inspection, pedal pulses present. Negative for: calf tenderness, pedal edema, tenderness - Neurological Exam Neurological exam: Alert, Oriented x3 Additional comments: No ataxia, cerebellar testing normal, +5/5 foot strength testing, sensation in all extremities equal and intact, 5/5 supervisor home energy consultant strength bilaterally - Psychiatric Exam Psychiatric exam: Normal Affect, Normal Mood - Skin Skin Exam: Dry, Intact, Normal Color, Warm Results - Vital Signs Recent Vital Signs: Last Vital Signs Temp 98.1 F 10/09/16 14:57 Pulse 59 L 10/09/16 16:17 Resp 12 10/09/16 16:17 BP 88/54 L 10/09/16 16:17 Pulse Ox 93 L 10/09/16 16:17 - Labs Result Diagrams: 10/09/16 15:30 10/09/16 15:30 Labs: Laboratory Results - last 24 hr 10/09/16 10/09/16 10/09/16 15:30 15:30 15:30 WBC 6.2 RBC 3.89 Hgb 13.2 L Hct 37.6 L MCV 96.7 MCH 33.9 MCHC 35.1 RDW 12.7 Plt Count 160 MPV 10.4 Gran % 65.2 Lymph % (Auto) 23.8 Carver % (Auto) 9.0 H Eos % (Auto) 1.4 L Baso % (Auto) 0.6 Gran # 4.04 Lymph # 1.5 Carver # 0.6 Eos # 0.1 Baso # 0.04 PT 12.4 H INR 1.15 H APTT 25.8 Sodium 129 L Potassium 4.4 Chloride 95 L Carbon Dioxide 23 Anion Gap 15 BUN 10 Creatinine 0.8 Est GFR ( Amer) > 60 Est GFR (Non-Af Amer) > 60 Random Glucose 139 H Calcium 8.9 Total Bilirubin 0.7 AST 30 ALT 41 Alkaline Phosphatase 43 Lactate Dehydrogenase 373 Total Creatine Kinase 84 Troponin I < 0.01 Total Protein 6.4 Albumin 3.5 Globulin 2.9 Albumin/Globulin Ratio 1.2 Assessment & Plan - Assessment and Plan (Free Text) Assessment: This is a 75 yo [facility] M with PMH of CAD x8 stents, HTN, HLD, DM, BPH, gout , and frequent near-syncopal episodes who is representing to [facility] due to syncopal episode after an acute episode of emesis while eating lunch. Plan: 1) Syncopal episodes s/p 1x episode of emesis -ddx: orthostatic hypoTN vs vasovagal (2/2 GI distress and emesis) vs diabetes ( autonomic dysregulation vs hyper-/hypo-glycemia) vs cardiac arrhythmia vs medication-induced -BP in the ED widely variable, 80's-150's in ED despite 2L NS given, orthostatic testing in the ED positive (SBP 150's in bed, down to 80's when standing, continued to fluctuate while back in bed, as low as 60's on the bedside monitor) -GI distress (loose stools) ~1-2 hours pre-syncopal event, emesis x1 immediately prior to syncope, may have caused a vasovagal reaction -hx Diabetes, managed on Metformin at home; hold metformin in favor of sliding scale insulin -glucose on arrival 139, no anion gaps, unlikely sx 2/2 hyper- or hypo-glycemia -Was on Cozaar and Flomax, held during last admission, d/c'ed as per PMD after AMA, but patient and family reports still low BP's at home (60's-80's systolic at home this AM) -On Sotalol 80mg BID, decreased to 40mg BID after last admission; concern for possible suppressing appropriate HR increase during hypotensive episodes, but as per Cardio, okay to continue 40mg BID sotalol, they will follow up with patient -Cardio consulted, appreciate all recs -High fall risk protocol, OOB with assistance only -Repeat Orthostatics in AM -PT/OT to assess -CT head ordered, f/u -CXR ordered to rule out aspiration given emesis and then syncope in rapid sequence -gentle hydration 80cc/hr, avoid fluid overload in setting of cardiac disease -Echo obtained during last admission 4 days prior, no need for repeat at this time -UA ordered -Trop x1 negative, trending 2 more, EKG repeat in AM (EKG in ED sinus chana at 58) 2) DM -holding home metformin in favor of sliding scale Lispo and fingersticks ACHS -heart healthy consistent carb diet 3) Hx CAD x8 stents -Continue ASA, Plavix, Sotalol -Cardio consulted, appreciate all recs 4) Hx HTN -persistent episodes of hypotension and orthostatic hypotension since addmission -continue to hold all home antihypertensives, holding home Flomax as well -continue to monitor 5) HLD -High dose statin in setting of syncopal episode -Lipitor 40mg PO daily 6) BPH -continue holding home flomax given hypotensive episodes 7) Gout -continue home allopurinol Dipso: Tele obs, pending Cardio eval and input, trops, repeat EKG, repeat orthostatics FEN: Heart-healthy consistent carb, NS 80cc/hr Access: Peripheral IV Consults: Cardio Ppx: Protonix for GI, Heparin for DVT Code Status: Full code Patient seen, reviewed, and discussed with attending, Dr. Gleason. - Date & Time Date: 10/09/16 Time: 17:30 Decision To Admit - Pt Status Changed To: Hospital Disposition Of: Observation - . Bed Request Type: Telemetry <Venus Gleason MD - Last Filed: 10/10/16 09:21> Results - Vital Signs Recent Vital Signs: Last Vital Signs Temp 97.8 F 10/10/16 00:00 Pulse 60 10/10/16 06:00 Resp 18 10/10/16 00:00 BP 140/72 10/10/16 00:00 Pulse Ox 97 10/10/16 00:00 - Labs Result Diagrams: 10/09/16 15:30 10/09/16 15:30 Labs: Laboratory Results - last 24 hr 10/09/16 10/09/16 10/09/16 17:50 21:00 22:00 POC Glucose (mg/dL) 122 H Troponin I < 0.01 Triglycerides 103 Cholesterol 94 L LDL Cholesterol Direct 55 HDL Cholesterol 26 L Free T4 Thyroxine (T4) TSH 3rd Generation Urine Color Yellow Urine Appearance Clear Urine pH 6.5 Ur Specific Gilman <= 1.005 Urine Protein Negative Urine Glucose (UA) Negative Urine Ketones Negative Urine Blood Negative Urine Nitrate Negative Urine Bilirubin Negative Urine Urobilinogen 0.2 Ur Leukocyte Esterase Negative 10/09/16 10/10/16 22:00 07:12 POC Glucose (mg/dL) 141 H Troponin I Triglycerides Cholesterol LDL Cholesterol Direct HDL Cholesterol Free T4 1.16 Thyroxine (T4) 7.9 TSH 3rd Generation 1.13 Urine Color Urine Appearance Urine pH Ur Specific Gilman Urine Protein Urine Glucose (UA) Urine Ketones Urine Blood Urine Nitrate Urine Bilirubin Urine Urobilinogen Ur Leukocyte Esterase Attending/Attestation - Attestation I have personally seen and examined this patient.: Yes I have fully participated in the care of the patient.: Yes I have reviewed all pertinent clinical information: Yes Notes (Text): 10/10/16 09:15 Patient was seen and examined with medical assistant cardiology .Agreed with resident assessment and plan. 75 year old male with history of CAD , SP cardiac stents, HTN, dyslipidemia, DM- 2, BPH, gout, former smoker, paroxysmal atrial fibrillation (not on anticoagulation, is admitted with episode of syncope , was found to be hypotensive and orthostatic in ER.There is no focal deficit.Patient was recently admitted in the hospital with similar symptoms.Patient hypertensive medications were adjusted at that time.Patient blood pressure has improved with IV hydration.His syncope is likely due to hypotension and ongoing orthostatic hypotension due to medication and autonomic neuro kun. Management plan was discussed in detail with patient Education was provided.
[2016-10-09 18:28] LABS: PH,URINE 6.5 (4.7-8.0); URINE APPEARANCE CLEAR (CLEAR); URINE BILIRUBIN NEGATIVE (NEGATIVE); URINE BLOOD NEGATIVE (NEGATIVE); URINE COLOR YELLOW (YELLOW); URINE GLUCOSE (UA) NEGATIVE (NEGATIVE); URINE KETONE NEGATIVE (NEGATIVE); URINE LEUKOCYTE ESTERASE NEGATIVE Leu/uL (NEGATIVE); URINE PROTEIN NEGATIVE mg/dL (<30 mg/dL); URINE UROBILINOGEN 0.2 E.U./dL (<1 E.U./dL)
[2016-10-09] MEDS: Insulin Lispro (humaLOG) LOW Coverage SC SCH (22:01)
--- NOTE | 2016-10-09 22:18 | CARD ---
APPROVED REPORT EKG Measurement Heart [id number] <Conclusion> Sinus bradycardia Inferior infarct, age undetermined Abnormal ECG
[2016-10-09 22:22] LABS: CHOLESTEROL 94 mg/dL (130-200)
[2016-10-09 22:35] LABS: TROPONIN I < 0.01 ng/mL
[2016-10-09 22:40] LABS: FREE T4 1.16 ng/dL (0.78-2.19); T4 7.9 ug/dL (5.5-11.0)
[2016-10-09 22:54] LABS: THYROID STIMULATING HORMONE 1.13 mIU/mL (0.46-4.68)
[2016-10-09] MEDS ORDERED: Pneumococcal 23-Valent Vaccine IM ONE (23:12)
[2016-10-10 00:58] VITALS: TEMP 97.8
[2016-10-10] MEDS: Sodium Chloride 0.9% 1,000 ML IV SCH (06:55)
[2016-10-10] MEDS ORDERED: Pantoprazole 40 mg EC Tab PO SCH (07:30)
[2016-10-10] MEDS: Insulin Lispro (humaLOG) LOW Coverage SC SCH (08:35)
[2016-10-10 09:16] VITALS: BP 153/79; PULSE 59; RESP 20; O2SAT 95
[2016-10-10 09:43] LABS: ADD MANUAL DIFF? NO
[2016-10-10 09:45] LABS: BASO # 0.03 K/mm3 (0.0-2.0); BASO % 0.5 % (0.0-3.0); EOS # 0.1 (0.0-0.7); EOS % 1.6 % (1.5-5.0); GRAN % 71.8 % (50.0-68.0); HEMATOCRIT 38.2 % (42.0-52.0); LYMPH # 1.3 (1.2-3.4); LYMPH % 20.3 % (22.0-35.0); MEAN CELL VOLUME 97.7 fL (80.0-105.0); MEAN CORPUSCULAR HEMOGLOBIN 33.8 pg (25.0-35.0); MEAN CORPUSCULAR HGB CONC 34.6 g/dl (31.0-37.0); MEAN PLATELET VOLUME 10.3 fl (7.0-11.0); MONO # 0.4 (0.1-0.6); MONO % 5.8 % (1.0-6.0); PLATELET COUNT 166 10^3/uL (120.0-450.0); WHITE BLOOD COUNT 6.4 10^3/ul (4.5-11.0)
[2016-10-10 09:54] LABS: ALB/GLOB RATIO 1.3 (1.1-1.8); ALKALINE PHOSPHATASE 48 U/L (38-133); ALT/SGPT 42 U/L (7-56); AST/SGOT 30 U/L (15-59); BILIRUBIN,TOTAL 0.7 mg/dL (0.2-1.3); BLOOD UREA NITROGEN 11 mg/dL (7-21); CALCIUM 9.1 mg/dL (8.4-10.5); CARBON DIOXIDE 26 mmol/L (21-33); CHLORIDE 98 mmol/L (98-107); GFR AFRICAN-AMERICAN > 60; GLUCOSE,RANDOM 181 mg/dL (70-110); MAGNESIUM 1.6 mg/dL (1.7-2.2); PHOSPHOROUS 3.2 mg/dL (2.5-4.5); POTASSIUM 4.5 mmol/L (3.6-5.0); SODIUM 134 mmol/L (132-148); TOTAL PROTEIN 7.1 g/dL (5.8-8.3)
[2016-10-10] MEDS ORDERED: Non Formulary Medication (Cholecalciferol (Vitamin D3) [Vitamin D3] 1 TAB) PO SCH (10:00)
--- NOTE | 2016-10-10 10:00 | RAD ---
HISTORY: vomiting then syncopal episode, r/o aspiration COMPARISON: No prior. FINDINGS: LUNGS: No active pulmonary disease. PLEURA: No significant pleural effusion identified, no pneumothorax apparent. CARDIOVASCULAR: Mild-moderate cardiomegaly. Tortuous and partly calcified thoracic aorta OSSEOUS STRUCTURES: No significant abnormalities. VISUALIZED UPPER ABDOMEN: Normal. OTHER FINDINGS: None. IMPRESSION: No active pulmonary disease. Cardiomegaly as above
[2016-10-10 10:15] LABS: TROPONIN I < 0.01 ng/mL
--- NOTE | 2016-10-10 10:24 | CT ---
PROCEDURE: CT HEAD WITHOUT CONTRAST. HISTORY: syncopal episode COMPARISON: 10/05/2016 TECHNIQUE: Axial computed tomography images were obtained through the head/brain without intravenous contrast. Radiation dose: Total exam DLP = 734 mGy-cm. This CT exam was performed using one or more of the following dose reduction techniques: Automated exposure control, adjustment of the mA and/or kV according to patient size, and/or use of iterative reconstruction technique. FINDINGS: HEMORRHAGE: No intracranial hemorrhage. BRAIN: No mass effect or edema. No atrophy or chronic microvascular ischemic changes. VENTRICLES: Unremarkable. No hydrocephalus. CALVARIUM: Unremarkable. PARANASAL SINUSES: There is mucosal thickening in the right maxillary sinus MASTOID AIR CELLS: Unremarkable as visualized. No inflammatory changes. OTHER FINDINGS: The report concurs with the preliminary [facility] report IMPRESSION: No acute findings
--- NOTE | 2016-10-10 14:36 | CARD ---
APPROVED REPORT EKG Measurement Heart [id number] <Conclusion> Normal sinus rhythm Inferior infarct, age undetermined Abnormal ECG
--- NOTE | 2016-10-10 14:42 | CP.PCM.DIS ---
Provider - Provider Date of Admission: 10/09/16 16:44 Attending physician: Venus Gleason MD Primary care physician: Kian Mattson MD Consults: Cardio - Dr. Medina Time Spent in preparation of Discharge (in minutes): 45 Hospital Course - Lab Results Lab Results: Most Recent Lab Values WBC 6.4 10^3/ul (4.5-11.0) 10/10/16 09:30 RBC 3.91 10^6/uL (3.5-6.1) 10/10/16 09:30 Hgb 13.2 gm/dL (14.0-18.0) L 10/10/16 09:30 Hct 38.2 % (42.0-52.0) L 10/10/16 09:30 MCV 97.7 fL (80.0-105.0) 10/10/16 09:30 MCH 33.8 pg (25.0-35.0) 10/10/16 09:30 MCHC 34.6 g/dl (31.0-37.0) 10/10/16 09:30 RDW 13.0 % (11.5-14.5) 10/10/16 09:30 Plt Count 166 10^3/uL (120.0-450.0) 10/10/16 09:30 MPV 10.3 fl (7.0-11.0) 10/10/16 09:30 Gran % 71.8 % (50.0-68.0) H 10/10/16 09:30 Lymph % (Auto) 20.3 % (22.0-35.0) L 10/10/16 09:30 [place] % (Auto) 5.8 % (1.0-6.0) 10/10/16 09:30 Eos % (Auto) 1.6 % (1.5-5.0) 10/10/16 09:30 Baso % (Auto) 0.5 % (0.0-3.0) 10/10/16 09:30 Gran # 4.60 (1.4-6.5) 10/10/16 09:30 Lymph # 1.3 (1.2-3.4) 10/10/16 09:30 [place] # 0.4 (0.1-0.6) 10/10/16 09:30 Eos # 0.1 (0.0-0.7) 10/10/16 09:30 Baso # 0.03 K/mm3 (0.0-2.0) 10/10/16 09:30 PT 12.4 Seconds (9.9-11.8) H 10/09/16 15:30 INR 1.15 (0.93-1.08) H 10/09/16 15:30 APTT 25.8 Seconds (23.7-30.8) 10/09/16 15:30 Sodium 134 mmol/L (132-148) 10/10/16 09:30 Potassium 4.5 mmol/L (3.6-5.0) 10/10/16 09:30 Chloride 98 mmol/L (98-107) 10/10/16 09:30 Carbon Dioxide 26 mmol/L (21-33) 10/10/16 09:30 Anion Gap 15 (10-20) 10/10/16 09:30 BUN 11 mg/dL (7-21) 10/10/16 09:30 Creatinine 0.8 mg/dL (0.5-1.4) 10/10/16 09:30 Est GFR ( Amer) > 60 10/10/16 09:30 Est GFR (Non-Af Amer) > 60 10/10/16 09:30 POC Glucose (mg/dL) 177 mg/dL (65-110) H 10/10/16 11:17 Random Glucose 181 mg/dL (70-110) H 10/10/16 09:30 Calcium 9.1 mg/dL (8.4-10.5) 10/10/16 09:30 Phosphorus 3.2 mg/dL (2.5-4.5) 10/10/16 09:30 Magnesium 1.6 mg/dL (1.7-2.2) L 10/10/16 09:30 Total Bilirubin 0.7 mg/dL (0.2-1.3) 10/10/16 09:30 AST 30 U/L (15-59) 10/10/16 09:30 ALT 42 U/L (7-56) 10/10/16 09:30 Alkaline Phosphatase 48 U/L (38-133) 10/10/16 09:30 Lactate Dehydrogenase 373 U/L (333-699) 10/09/16 15:30 Total Creatine Kinase 84 U/L (35-230) 10/09/16 15:30 Troponin I < 0.01 ng/mL 10/10/16 09:30 Total Protein 7.1 g/dL (5.8-8.3) 10/10/16 09:30 Albumin 4.0 g/dL (3.0-4.8) 10/10/16 09:30 Globulin 3.0 gm/dL 10/10/16 09:30 Albumin/Globulin Ratio 1.3 (1.1-1.8) 10/10/16 09:30 Triglycerides 103 mg/dL (35-160) 10/09/16 22:00 Cholesterol 94 mg/dL (130-200) L 10/09/16 22:00 LDL Cholesterol Direct 55 mg/dL (0-129) 10/09/16 22:00 HDL Cholesterol 26 mg/dL (29-60) L 10/09/16 22:00 Free T4 1.16 ng/dL (0.78-2.19) 10/09/16 22:00 Thyroxine (T4) 7.9 ug/dL (5.5-11.0) 10/09/16 22:00 TSH 3rd Generation 1.13 mIU/mL (0.46-4.68) 10/09/16 22:00 Urine Color Yellow (YELLOW) 10/09/16 17:50 Urine Appearance Clear (CLEAR) 10/09/16 17:50 Urine pH 6.5 (4.7-8.0) 10/09/16 17:50 Ur Specific [place] <= 1.005 (1.005-1.035) 10/09/16 17:50 Urine Protein Negative mg/dL (<30 mg/dL) 10/09/16 17:50 Urine Glucose (UA) Negative mg/dL (NEGATIVE) 10/09/16 17:50 Urine Ketones Negative mg/dL (NEGATIVE) 10/09/16 17:50 Urine Blood Negative (NEGATIVE) 10/09/16 17:50 Urine Nitrate Negative (NEGATIVE) 10/09/16 17:50 Urine Bilirubin Negative (NEGATIVE) 10/09/16 17:50 Urine Urobilinogen 0.2 E.U./dL (<1 E.U./dL) 10/09/16 17:50 Ur Leukocyte Esterase Negative Marilyn/uL (NEGATIVE) 10/09/16 17:50 Discharge Exam - Head Exam Head Exam: ATRAUMATIC, NORMAL INSPECTION, NORMOCEPHALIC Discharge Plan - Follow Up Plan Condition: GOOD Disposition: HOME/ ROUTINE Instructions: Syncope (DC), Syncope (GEN) Referrals: Kian Mattson MD [Primary Care Provider] -
--- NOTE | 2016-10-11 08:03 | CON ---
DATE: 10/10/2016 REASON FOR CONSULTATION: Syncope. HISTORY OF PRESENT ILLNESS: The patient is a 75-year-old male who has a history of coronary artery d isease status post multiple coronary stenting in the past. The most recent one was about 2-3 years a go according to the patient's . The patient presented because of a fainting spell that was witne ssed by the . The patient stated that he did have a loose bowel movement that morning and as he was sitting with his the noticed that his right hand was shaking and then he slumped his he ad on his right shoulder while sitting on a chair but did not fall to the ground. The was able to use cold towel on his face and that woke the patient up. There was no reported seizure activity e xcept for shaking of the right hand. There was no urinary incontinence. The patient did have a ozzy lar fainting spell a few years ago. The patient denies retrosternal chest pain. SOCIAL HISTORY: The patient is a nonsmoker, nondrinker. HOME MEDICATIONS: Include aspirin, Zyloprim, Plavix, sotalol, Lipitor, metformin, and vitamin D3. CURRENT HOSPITAL MEDICATIONS: Sotalol 40 mg twice a day, aspirin 81 mg once a day, heparin 5000 unit s twice a day, Lipitor 40 mg once a day, Plavix 75 mg once a day, Protonix 40 mg twice a day, normal saline at 80 mL an hour, allopurinol 100 mg once a day. REVIEW OF SYSTEMS: No fever or chills. No productive cough. No palpitation, no retrosternal chest pain. PHYSICAL EXAMINATION: GENERAL: The patient is an elderly male who does not appear to be in acute distress. VITAL SIGNS: Blood pressure 153/79, heart rate 59, temperature 97.8, respirations 20. HEENT: Head is normocephalic. NECK: No JVD. CHEST: Clear. HEART: S1, S2 regular. ABDOMEN: Soft. EXTREMITIES: No edema. LABORATORY DATA: Hemoglobin and hematocrit are 13.1 and 38.2. White count and platelet count are wi thin normal limit. SMA-7 is within normal limits today except for glucose of 181. Yesterday's ____ was 129 (below normal). Three sets of troponins are negative. Total cholesterol 94, LDL cholesterol at 65, HDL cholesterol is 26. TSH level and T4 as well as free T4 levels are all within normal limi ts. Head CT scan without contrast: No acute findings. 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 Yesterday's EKG was the same as sinus bradycardia at 58 with old inferior infarct. No prolonga tion of the QT interval. A stress test in 05/2015 revealed fixed ____ and inferolateral defect sugge stive of previous myocardial injury, borderline normal ejection fraction despite inferior hypokinesis . Recent echocardiographic study was unremarkable. ASSESSMENT: 1. Syncopal episode. Consider underlying dehydration. The patient did experience diarrhea earlier during the day and was hyponatremic. 2. Coronary artery disease with history of multiple coronary stenting in the past. 3. Hypertension and diabetes mellitus. 4. Gout. RECOMMENDATIONS: Continue current intravenous hydration. Continue aspirin 81 mg once a day, subcuta neous heparin 5000 units twice a day, Lipitor at 40 mg once a day, Plavix 75 mg once a day. It does not appear that Betapace had anything to do with the patient's recent syncope and should be continued . Further neurological evaluation is recommended. Issa Medina MD cc: [id number] TT: 10/10/2016 17:23:08 Confirmation # [id number] Dictation # [id number] elham
== END 2016-10-10 16:09 | disposition home or self-care (01) ==
LOC: ED 14:42 → ERH 16:44 → 3RSO 18:25
PROVIDERS: ADMIT Internal Medicine; ATTEND Internal Medicine
DX: E86.0 Dehydration (principal); E87.1 Hypo-osmolality and hyponatremia; I95.2 Hypotension due to drugs; R55 Syncope and collapse; I10 Essential (primary) hypertension; N40.0 Benign prostatic hyperplasia without lower urinary tract symptoms; I25.10 Atherosclerotic heart disease of native coronary artery without angina pectoris; E11.43 Type 2 diabetes mellitus with diabetic autonomic (poly)neuropathy; E78.5 Hyperlipidemia, unspecified; M10.9 Gout, unspecified; I48.0 Paroxysmal atrial fibrillation; R19.7 Diarrhea, unspecified; R11.10 Vomiting, unspecified; Z87.891 Personal history of nicotine dependence; Z95.5 Presence of coronary angioplasty implant and graft; Z79.82 Long term (current) use of aspirin; Z79.84 Long term (current) use of oral hypoglycemic drugs
CPT/HCPCS: 36415; 70450; 71010; 80053; 80061; 81003; 82550; 82948; 83615; 83735; 84100; 84439; 84443; 84481; 84484; 85025; 85610; 85730; 87040; 93005; 96360; 97116; 97161; 99285; G0378; G8978; G8979; G8980; J1644; J7040

== ENCOUNTER 2017-01-24 08:11 | Day surgery (SDC) | payer MEDICARE ==
[2017-01-24] MEDS ORDERED: Lidocaine 1% Inj (20ml) ONE (09:31)
[2017-01-24] MEDS ORDERED: Propofol 10 mg/ml Inj (20 ML) ONE (09:31)
[2017-01-24] MEDS ORDERED: Sodium Chloride 0.9% 1,000 ML IV SCH (10:15)
[2017-01-24 11:12] VITALS: BP 145/85; PULSE 57; RESP 19; TEMP 97.7; O2SAT 98
== END 2017-01-24 11:26 | disposition home or self-care (01) ==
LOC: ENDO 08:11
PROVIDERS: ATTEND Specialist
DX: Z12.11 Encounter for screening for malignant neoplasm of colon (principal); K63.5 Polyp of colon; K62.1 Rectal polyp; K57.30 Diverticulosis of large intestine without perforation or abscess without bleeding; K64.8 Other hemorrhoids; I10 Essential (primary) hypertension; E11.9 Type 2 diabetes mellitus without complications; I25.10 Atherosclerotic heart disease of native coronary artery without angina pectoris; N40.0 Benign prostatic hyperplasia without lower urinary tract symptoms

== ENCOUNTER 2018-05-28 09:35 | Outpatient (CLI) | payer MEDICARE | END 2018-05-28 09:36 | disposition home or self-care (01) | LOC: RAD 09:35 | DX: I42.9 Cardiomyopathy, unspecified (principal) ==